=== PATIENT | male | born 1980 | race Caucasian/White ===

== ENCOUNTER 2022-11-27 18:17 | Emergency (ER) | payer SELFPAY ==
[~2022-11-27] VITALS: Ht 182.8 cm; Wt 99.7 kg
[2022-11-27 18:36] VITALS: BP 158/104
[2022-11-27] MEDS ORDERED: IBUPROFEN 800 MG (MOTRIN) TAB PO STA (18:54)
[2022-11-27 18:59] LABS: BILIRUBIN,URINE NEGATIVE (NEGATIVE); CLARITY,URINE CLEAR; COLOR,URINE YELLOW; GLUCOSE, URINE (UA) NEGATIVE (NEGATIVE); KETONES,URINE NEGATIVE (NEGATIVE); LEUKOCYTE ESTERASE ,URINE NEGATIVE (NEGATIVE); NITRITE,URINE NEGATIVE (NEGATIVE); PROTEIN,URINE NEGATIVE (NEGATIVE)
[2022-11-27 19:11] LABS: AMORPHOUS SEDIMENT,UR RARE AMOR URATES /LPF; BACTERIA,URINE NEGATIVE /HPF; RBC,URINE RARE /HPF
[2022-11-27] MEDS ORDERED: LEVO-55 PO (19:11)
--- NOTE | 2022-11-27 19:11 | ED GU-Male ---
General Chief Complaint: - Reproductive Stated Complaint: TESTICLE PAIN Nursing Triage Note: PT AMB TO [facility] WITH COMPLAINT OF TESTICULAR PAIN. STATES HE WAS RECENTLY ON ANTIBIOTICS FOR AN INFECTION. STATES HAS BEEN OFF ANTIBIOTICS FOR 3 DAYS AND SYMPTOMS ARE BACK. Source: patient Exam Limitations: no limitations History of Present Illness Date Seen by Provider: Nov 27, 2022 Time Seen by Provider: 18:37 Initial Comments Here with report of bilateral testicular pain. He has had this for the last 3 days. He was recently on antibiotics for epididymitis with similar pain. He was on ciprofloxacin for 14 days. States that he did feel better during the treatment but then started having problems again a few days later which prompted visit here. He was seen in [facility] and had testing including imaging and then also STD testing. He reports that STD testing was negative. He does have a stable partner. Reports that he is sexually active and is not having problems currently with orgasm or ejaculation. He does have some pain with activity that not is similar to previous. Denies fever or chills. Denies dysuria. Denies nausea or vomiting. Timing/Duration: changing over time, other (3 days) Severity/Quality: mild, aching Location: suprapubic, scrotal (Bilateral left greater than right) Radiation: suprapubic Activities at Onset: rest, sexual activity Prior Genitourinary Problems: none Sexual Hondo History: less than 2 months ago, single partner Modifying Factors: Worsens With Movement, Worsens With Palpation; Improves With Resting Associated Symptoms: denies symptoms Allergies and Home Medications Allergies Coded Allergies: No Known Drug Allergies (Unverified , 11/27/22) Patient Home Medication List Home Medication List Reviewed: Yes Levofloxacin (Levofloxacin) 500 Mg Tablet, 500 MG PO DAILY Prescribed by: NASIR KIDD on 11/27/221910 Review of Systems Review of Systems Constitutional: see HPI; No chills, No fever EENTM: no symptoms reported Respiratory: no symptoms reported Gastrointestinal: see HPI Genitourinary: see HPI; denies incontinence; pain; denies urgency Past Yfsgkxy-Rciudw-Cvajuj Hx Patient Social History Tobacco Use?: Yes Tobacco type used: Cigarettes Smoking Status: Current Everyday Smoker Use of E-Cig and/or Vaping dev: No Substance use?: Yes Substance type: Marijuana Alcohol Use?: Yes Alcohol Frequency: Once in a while Pt feels they are or have been: No Family Medical History Reviewed Nursing Family Hx Physical Exam Vital Signs Vital Signs - First Documented 11/27/22 18:36 Temp 35.8 Pulse 88 Resp 16 B/P (MAP) 158/104 (122) Pulse Ox 100 O2 Delivery Room Air Capillary Refill : Less Than 3 Seconds Height, Weight, BMI Height: '" Weight: lbs. oz. kg; 29.00 BMI Method: General Appearance: WD/WN, no apparent distress Cardiovascular: regular rate, rhythm, no murmur Respiratory: lungs clear, normal breath sounds Male: no hernia, inguinal tenderness (Left greater than right), testicular tenderness (Left greater than right), other (No mass noted. No significant swelling. Cremasteric reflexes remain intact bilateral) Back: normal inspection, no CVA tenderness, no vertebral tenderness Neurologic/Psychiatric: alert, oriented x 3 Skin: normal color, warm/dry Progress/Results/Core Measures Suspected Sepsis SIRS Temperature: Pulse: 88 Respiratory Rate: 16 Blood Pressure 158 /104 Mean: 122 Results/Orders Lab Results Laboratory Tests Test 11/27/22 18:43 Range/Units Urine Color YELLOW Urine Clarity CLEAR Urine pH 6.0 5-9 Urine Specific [place] >=1.030 1.016-1.022 Urine Protein NEGATIVE NEGATIVE Urine Glucose (UA) NEGATIVE NEGATIVE Urine Ketones NEGATIVE NEGATIVE Urine Nitrite NEGATIVE NEGATIVE Urine Bilirubin NEGATIVE NEGATIVE Urine Urobilinogen 0.2 < = 1.0 MG/DL Urine Leukocyte Esterase NEGATIVE NEGATIVE Urine RBC (Auto) NEGATIVE NEGATIVE Urine RBC RARE /HPF Urine WBC NONE /HPF Urine Crystals PRESENT H /LPF Urine Amorphous Sediment RARE SAMANTHA URATES H /LPF Urine Bacteria NEGATIVE /HPF Urine Casts NONE /LPF Urine Mucus SMALL H /LPF Urine Culture Indicated NO My Orders Orders - NASIR KIDD MD Neel Dna Urine Test (11/27/22 18:54) Chlamydia Trachomatis Urine (11/27/22 18:54) Ua Culture If Indicated (11/27/22 18:54) Ibuprofen Tablet (Motrin Tablet) (11/27/22 18:54) Vital Signs/I&O 11/27/22 18:36 Temp 35.8 Pulse 88 Resp 16 B/P (MAP) 158/104 (122) Pulse Ox 100 O2 Delivery Room Air Capillary Refill : Less Than 3 Seconds Blood Pressure Mean: 122 Progress Note : Progress Note Seen and evaluated. Patient with 3 days of pain that similar to previous episode of epididymitis that was successfully treated with ciprofloxacin. He has had negative STI cultures previously but we will go ahead and recheck that as well as UA. He is likely having enterococcal related epididymitis infection as he has had negative STI testing within the last few weeks. We will go ahead and initiate outpatient levofloxacin 500 mg daily for 10 days. I will give ibuprofen 800 mg p.o. now. UA reviewed and no acute findings. Discharged home with return precautions. Patient verbalized understand instructions and agreement with plan. Departure Impression Primary Impression: Epididymitis, bilateral Disposition: HOME, SELF-CARE Condition: Stable Departure-Patient Inst. Decision time for Depature: 19:16 Referrals: NO,LOCAL PHYSICIAN (PCP/Family) Primary Care Physician Patient Instructions: Epididymitis Add. Discharge Instructions: All discharge instructions reviewed with patient and/or family. Voiced understanding. Take medications as directed. You should follow-up with your urologist for recheck and further evaluation. Return for worse pain, fever, swelling, difficulty with urination or other concerns as needed. You may take ibuprofen 600 mg every 8 hours as needed for pain. You may also take Tylenol/acetaminophen 1000 mg every 8 hours as needed for pain. Drink plenty of fluids. Scripts Levofloxacin (Levofloxacin) 500 Mg Tablet 500 MG PO DAILY, #10 TAB 0 Refills Prov: NASIR KIDD MD 11/27/22 NASIR KIDD MD Nov 27, 2022 19:11
== END 2022-11-27 19:22 | disposition home or self-care (01) ==
LOC: ER 18:21
DX: N45.1 Epididymitis (principal); F17.210 Nicotine dependence, cigarettes, uncomplicated
CPT/HCPCS: 36415; 81000; 87491; 87591; 99283